=== PATIENT | male | born 1940 | race Caucasian/White ===

== ENCOUNTER 2022-10-30 18:54 | Emergency (ER) | payer OTHER ==
[2022-10-30 19:11] VITALS: BP 165/86; PULSE 77; RESP 18; TEMP 98.8; BMI 23.6
[2022-10-30] MEDS ORDERED: DIPHTH,PERTUSS(ACELL),TET 0.5 ML DISP.SYRIN IM ONE (20:03)
== END 2022-10-30 20:15 | disposition home or self-care (01) ==
LOC: FER 18:54 → SUPCPDRO 18:54 → FER 20:15
PROC: 0HQGXZZ Repair Left Hand Skin, External Approach (ICD-10-PCS; principal; 2022-10-30)
DX: S51.812A Laceration without foreign body of left forearm, initial encounter (principal); W01.0XXA Fall on same level from slipping, tripping and stumbling without subsequent striking against object, initial encounter; Y93.9 Activity, unspecified; Y92.9 Unspecified place or not applicable
CPT/HCPCS: 12001-25; 90471; 90715; 99282-25

== ENCOUNTER 2022-11-07 15:31 | Emergency (ER) | payer OTHER ==
[2022-11-07 15:46] VITALS: BP 130/72; PULSE 65; RESP 18; TEMP 98.1; BMI 24.3
== END 2022-11-07 15:42 | disposition home or self-care (01) ==
LOC: FER 15:31
DX: Z48.02 Encounter for removal of sutures (principal)
CPT/HCPCS: 99281-25

== ENCOUNTER 2022-11-09 13:07 | Emergency (ER) | payer OTHER ==
[2022-11-09 13:21] VITALS: BP 163/76; PULSE 64; RESP 20; TEMP 98.3; BMI 27.2
== END 2022-11-09 13:47 | disposition home or self-care (01) ==
LOC: FER 13:07
DX: Z48.02 Encounter for removal of sutures (principal)
CPT/HCPCS: 99281-25